=== PATIENT | female | born 1985 | race Hispanic/Latino ===

== ENCOUNTER 2018-05-07 09:28 | Emergency (ER) | payer OTHER ==
[~2018-05-07] VITALS: Ht 170.2 cm; Wt 108.9 kg
[2018-05-07] MEDS ORDERED: DEXAMETHASONE SOD PHOS 10 MG/1 ML VIAL IM ONE (09:45)
[2018-05-07] MEDS ORDERED: LORATADINE 10 MG TAB PO ONE (09:45)
[2018-05-07] MEDS ORDERED: HYDROMORPHONE 2MG/ML 2 MG/ML ML IM NR (16:30)
== END 2018-05-07 10:08 | disposition home or self-care (01) ==
LOC: ER 09:28
DX: R09.89 Other specified symptoms and signs involving the circulatory and respiratory systems (principal); J30.1 Allergic rhinitis due to pollen; J30.2 Other seasonal allergic rhinitis
CPT/HCPCS: 99282; J1100; J1170

== ENCOUNTER 2024-09-24 12:10 | Emergency (ER) | payer BC ==
[~2024-09-24] VITALS: Ht 167.6 cm; Wt 106.6 kg
[2024-09-24 12:40] VITALS: TEMP 97.6
[2024-09-24] MEDS: SODIUM CHLORIDE 0.9% 1000ML 1,000 ML IV STA (14:40)
[2024-09-24 14:44] LABS: BASOPHILS % 0.3 % (0.0-1.0); EOSINOPHILS % 5.5 % (0.0-6.0); LYMPHOCYTES % 23.2 % (18.0-39.1); MONOCYTES % 5.9 % (4.4-11.3); NEUTROPHILS % 65.0 % (38.7-80.0); RED CELL DISTRIBUTION WIDTH 36.4 % (11.7-14.4)
[2024-09-24 14:51] LABS: INR 0.9
[2024-09-24 14:57] LABS: EST GLOMERULAR FILTRATION RATE 103 ML/MIN (>=60)
[2024-09-24 15:27] VITALS: RESP 18
[2024-09-24 16:18] VITALS: PULSE 77
[2024-09-24 16:23] VITALS: BP 118/78; O2SAT 99
== END 2024-09-24 16:24 | disposition home or self-care (01) ==
LOC: ER 13:46
DX: R20.0 Anesthesia of skin (principal); R20.2 Paresthesia of skin; M06.9 Rheumatoid arthritis, unspecified
CPT/HCPCS: 36415; 70450; 71045; 80053; 83735; 84443; 84484; 84702; 85025; 85610; 85730; 93005; 99284; J7030